=== PATIENT | male | born 1980 | race Two or more races ===

== ENCOUNTER 2021-03-20 18:03 | Emergency (ER) | payer OTHER, SELFPAY ==
--- NOTE | 2021-03-20 | ECG_ITS ---
Test Reason : CHESTPAIN Blood Pressure : / mmHG Vent. Rate : 086 BPM Atrial Rate : 086 BPM P-R Int : 160 ms QRS Dur : 092 ms QT Int : 342 ms P-R-T Axes : 065 008 021 degrees QTc Int : 409 ms Normal sinus rhythm Normal ECG When compared with ECG of 02-OCT-2019 06:37, No significant change was found Referred By: Myron Li Electronically Signed By:MARIA LUISA RAY
--- NOTE | ~2021-03-20 | XR_ITS ---
EXAMINATION: XR CHEST CLINICAL INFORMATION: Chest pain COMPARISON: None TECHNIQUE: Frontal view of the chest was obtained. FINDINGS: No significant abnormality is noted involving the heart, lungs, mediastinum, bony thorax or soft tissues. XR/XR chest 1V IMPRESSION: Unremarkable examination.
[2021-03-20 18:41] VITALS: BP 127/76; PULSE 87; RESP 18; TEMP 37; O2SAT 98; BMI 35.8
[2021-03-20 23:42] LABS: MANUAL DIFF FLAG NO
[2021-03-20 23:43] LABS: Basophils Absolute Auto 0.1 X10*3/uL (0.0-0.2); Basophils Percent Auto 0.6 % (0-2); Eosinophils Absolute Auto 0.2 X10*3/uL (0.0-0.4); Eosinophils Percent Auto 1.9 % (0-4); Hematocrit 44.8 % (42-52); Hemoglobin 15.1 g/dl (14.0-18.0); Imm Gran Abs Auto 0.02 X10*3/uL (0.00-0.03); Imm Gran Pct Auto 0.2 % (0.0-0.4); Lymphocytes Absolute Auto 1.6 X10*3/uL (1.2-4.9); Lymphocytes Percent Auto 17.6 % (20-40); Mean Corpuscular HGB Conc 33.7 g/dl (31.0-36.0); Mean Corpuscular Hemoglobin 29.3 pg (27.0-33.0); Mean Platelet Volume 12.4 fL (9.4-12.4); Monocytes Absolute Auto 0.4 X10*3/uL (0.1-1.2); Monocytes Percent Auto 4.1 % (2-11); Neutrophils Absolute Auto 6.7 X10*3/uL (2.0-8.3); Neutrophils Percent Auto 75.6 % (45-73); Platelet Count 163 X10*3/uL (160-400); Red Blood Count 5.15 X10*6/uL (4.60-5.80); Red Cell Distribution Width 12.6 % (11.0-16.0); White Blood Count 8.8 X10*3/uL (4.8-10.8)
--- NOTE | 2021-03-20 23:43 | ED_ITS ---
HPI - Chest Pain General Chief Complaint: Chest Pain Stated Complaint: CHEST PAIN Time Seen by Provider: 03/20/21 23:36 Source: patient Mode of arrival: ambulatory Limitations: no limitations History of Present Illness HPI narrative: Patient comes emergency room complaining of cough. Patient states when he coughs he gets chest pain, otherwise he does not have chest pain. Patient reports episodes of vomiting after coughing, also having loose stools. Patient denies fever chills. All of patient's symptoms started this morning. Patient states he is vaccinated for COVID-19 MD complaint: other (Cough) Related Data Previous Rx's Medication Instructions Recorded azithromycin 250 mg PO DAILY #6 tab 03/21/21 benzonatate [Tessalon Perles] 100 mg PO BID PRN #10 cap 03/21/21 Allergies Allergy/AdvReac Type Severity Reaction Status Date / Time No Known Allergies Allergy Verified 03/20/21 18:41 [No Known Allergies*] Review of Systems Review of Systems: Constitutional : No Weight loss, No Fever, No Chills, No Night Sweats, No Fatigue, No Malaise ENT/Mouth : No Hearing loss, No Ear Pain, No Nasal Congestion, No Sinus Pain, No Hoarseness, No sore throat, No Rhinorrhea, No Swallowing Difficulty Eyes: No Eye Pain, No Swelling, No Redness, No Foreign Body, No Discharge, No Vision Changes Cardiovascular : Complaining of Chest Pain with coughing, No SOB, No Dyspnea on Exertion, No Orthopnea, No Edema, No Palpitations Respiratory : Dry Cough, No Sputum with specks of blood, No Wheezing, No Smoke Exposure, No Dyspnea Gastrointestinal : No Nausea, No Vomiting, No Diarrhea, No Constipation, No abdominal Pain, No Hematochezia, No Melena Genitourinary : no irregular bleeding, No Dysuria, No Urinary Frequency, No Hematuria, No Urinary Incontinence, No Urgency, No Flank Pain, No Urinary Flow Changes, No Hesitancy Musculoskeletal : No joint pain, No Myalgias, No Joint Swelling Skin : No Skin Lesions, No rash Neuro : No Weakness, No Numbness, No Paresthesias, No Loss of Consciousness, No Dizziness, No Headache Psych : No Anxiety/Panic, No Depression, No SI/HI/AH/VH, No Social Issues, Heme/Lymph: No Bruising, No Bleeding,No Lymphadenopathy Endocrine : No Polyuria, No Polydipsia, No Temperature Intolerance [facility] Past Medical History Medical History Asthma Social History Social History Advance Directives: No Advance Directives Information Provided: No Physical Exam Vital Signs: Vital Signs: Last Vital Signs Temp 98.6 F 03/20/21 18:41 Pulse 87 03/20/21 18:41 Resp 18 03/20/21 18:41 BP 127/76 03/20/21 18:41 Pulse Ox 98 03/20/21 18:41 Body Mass Index 35.8 Appearance: Alert. Oriented X3. No acute distress. Eyes: Pupils equal, round and reactive to light. ENT: Pharynx normal. Neck: Normal inspection. Neck supple. No lymph nodes noted. No crepitus CVS: Normal heart rate and rhythm. Pulses normal. Normal S1 and S2 Respiratory: No respiratory distress. Breath sounds normal. No Wheezing. No rales , actively coughing, no hemoptysis Abdomen: Soft and nontender. No rigidity. No distention. good BS x4 Skin: Skin warm and dry. Normal skin color. Normal skin turgor. Extremities: No lower extremity edema. No lower extremity edema. No Lacerations. No Rash Neuro: Oriented X 3. No motor deficit. No sensory deficit. Moving all extermities. No slurred speech. Course Course Course Narrative: I discussed the labs and x-ray with the patient. Although there are no radiological findings, given the patient has cough and seen specks of blood, we will go ahead and treat for bronchitis. I discussed with the patient that it is possible that he may have bronchitis versus a 1 time episode of hemoptysis due to forceful coughing. In the emergency room, patient has not had any hemoptysis. MDM - Chest Pain Lab Data Result diagrams: 03/20/21 23:37 03/20/21 23:37 Labs: Lab Results 03/20/21 03/20/21 03/20/21 Range/Units 23:37 23:37 23:37 WBC 8.8 (4.8-10.8) X10*3/uL RBC 5.15 (4.60-5.80) X10*6/uL Hgb 15.1 (14.0-18.0) g/dl Hct 44.8 (42-52) % MCV 87.0 (80-98) fL MCH 29.3 (27.0-33.0) pg MCHC 33.7 (31.0-36.0) g/dl RDW 12.6 (11.0-16.0) % Plt Count 163 (160-400) X10*3/uL MPV 12.4 (9.4-12.4) fL Immature Gran % (Auto) 0.2 (0.0-0.4) % Neut % (Auto) 75.6 H (45-73) % Lymph % (Auto) 17.6 L (20-40) % Early % (Auto) 4.1 (2-11) % Eos % (Auto) 1.9 (0-4) % Baso % (Auto) 0.6 (0-2) % Lymph # (Auto) 1.6 (1.2-4.9) X10*3/uL Early # (Auto) 0.4 (0.1-1.2) X10*3/uL Eos # (Auto) 0.2 (0.0-0.4) X10*3/uL Baso # (Auto) 0.1 (0.0-0.2) X10*3/uL Abs Immat Gran (auto) 0.02 (0.00-0.03) X10*3/uL Absolute Neuts (auto) 6.7 (2.0-8.3) X10*3/uL Absolute Nucleated RBC 0.000 (0.0-0.012) X10*3/uL Nucleated RBC % (auto) 0.0 (0.0-0.2) /100WBC Sodium 139 (135-145) mmol/L Potassium 3.8 (3.3-5.1) mmol/L Chloride 105 (96-108) mmol/L Carbon Dioxide 27 (22-29) mmol/L Anion Gap 11 L (12-20) BUN 9 (9-16) mg/dL Creatinine 1.26 (0.5-1.4) mg/dL Estim Creat Clear Calc 95.2 Estimated GFR > 60 Random Glucose 203 H (60-115) mg/dL Calcium 9.0 (8.4-10.2) mg/dL Total Bilirubin 1.2 H (0.0-1.0) mg/dL Direct Bilirubin 0.4 (0.0-0.5) mg/dL AST 27 (5-37) U/L ALT 76 H (0-40) U/L Alkaline Phosphatase 128 H (39-117) U/L Troponin I High Sens < 3.5 (<3.5-35.0) ng/L Total Protein 6.4 L (6.5-8.0) g/dL Albumin 4.3 (3.5-5.0) g/dL Lipase 18 (8-78) U/L Coronavirus (PCR) (Negative) Influenza Type A (PCR) (Negative) Influenza Type B (PCR) (Negative) RSV RNA Qual (PCR) (Negative) 03/20/21 Range/Units 23:37 WBC (4.8-10.8) X10*3/uL RBC (4.60-5.80) X10*6/uL Hgb (14.0-18.0) g/dl Hct (42-52) % MCV (80-98) fL MCH (27.0-33.0) pg MCHC (31.0-36.0) g/dl RDW (11.0-16.0) % Plt Count (160-400) X10*3/uL MPV (9.4-12.4) fL Immature Gran % (Auto) (0.0-0.4) % Neut % (Auto) (45-73) % Lymph % (Auto) (20-40) % Early % (Auto) (2-11) % Eos % (Auto) (0-4) % Baso % (Auto) (0-2) % Lymph # (Auto) (1.2-4.9) X10*3/uL Early # (Auto) (0.1-1.2) X10*3/uL Eos # (Auto) (0.0-0.4) X10*3/uL Baso # (Auto) (0.0-0.2) X10*3/uL Abs Immat Gran (auto) (0.00-0.03) X10*3/uL Absolute Neuts (auto) (2.0-8.3) X10*3/uL Absolute Nucleated RBC (0.0-0.012) X10*3/uL Nucleated RBC % (auto) (0.0-0.2) /100WBC Sodium (135-145) mmol/L Potassium (3.3-5.1) mmol/L Chloride (96-108) mmol/L Carbon Dioxide (22-29) mmol/L Anion Gap (12-20) BUN (9-16) mg/dL Creatinine (0.5-1.4) mg/dL Estim Creat Clear Calc Estimated GFR Random Glucose (60-115) mg/dL Calcium (8.4-10.2) mg/dL Total Bilirubin (0.0-1.0) mg/dL Direct Bilirubin (0.0-0.5) mg/dL AST (5-37) U/L ALT (0-40) U/L Alkaline Phosphatase (39-117) U/L Troponin I High Sens (<3.5-35.0) ng/L Total Protein (6.5-8.0) g/dL Albumin (3.5-5.0) g/dL Lipase (8-78) U/L Coronavirus (PCR) NEGATIVE (Negative) Influenza Type A (PCR) NEGATIVE (Negative) Influenza Type B (PCR) NEGATIVE (Negative) RSV RNA Qual (PCR) NEGATIVE (Negative) Imaging Data Chest x-ray: Radiologist's impression: No significant abnormality is noted involving the heart, lungs, mediastinum, bony thorax or soft tissues. XR/XR chest 1V IMPRESSION: Unremarkable examination. Discharge Plan Discharge Clinical Impression: Bronchitis Patient Disposition: Home, Self-Care Instructions: Acute Bronchitis (ED) Additional Instructions: Please follow-up with your primary care physician tomorrow. If you have any worsening or new symptoms, please return to the emergency room or call 911 Prescriptions: New azithromycin 250 mg tablet 250 mg PO DAILY Qty: 6 RF: 0 benzonatate [Tessalon Perles] 100 mg capsule 100 mg PO BID PRN (Reason: cough) Qty: 10 RF: 0
[2021-03-21 00:14] LABS: Alanine Aminotransferase 76 U/L (0-40); Albumin Level 4.3 g/dL (3.5-5.0); Alkaline Phosphatase 128 U/L (39-117); Anion Gap 11 (12-20); Aspartate Amino Transferase 27 U/L (5-37); Bilirubin Direct 0.4 mg/dL (0.0-0.5); Bilirubin Total 1.2 mg/dL (0.0-1.0); Blood Urea Nitrogen 9 mg/dL (9-16); Carbon Dioxide 27 mmol/L (22-29); Chloride 105 mmol/L (96-108); Creatinine Clr Calc Pharmacy 95.2; Estimated Glomerular Filt Rate > 60; Glucose Random 203 mg/dL (60-115); Potassium 3.8 mmol/L (3.3-5.1); Sodium 139 mmol/L (135-145); Total Protein 6.4 g/dL (6.5-8.0)
[2021-03-21 00:16] LABS: Troponin-I High Sensitivity < 3.5 ng/L (<3.5-35.0)
[2021-03-21 00:43] LABS: Influenza A PCR NEGATIVE (Negative); Influenza B PCR NEGATIVE (Negative); Resp Syncy Virus RNA Qual PCR NEGATIVE (Negative); SARS COV2 PCR INHOUSE NEGATIVE (Negative)
[2021-03-21 01:02] LABS: Lipase 18 U/L (8-78)
[2021-03-21 02:17] VITALS: PULSE 83; RESP 16; O2SAT 96
[2021-03-21] MEDS: Benzonatate 100 MG CAPSULE PO (02:17)
== END 2021-03-21 02:38 | disposition home or self-care (01) ==
PROVIDERS: Emergency Medicine; Emergency Provider Emergency Medicine
DX: J40 Bronchitis, not specified as acute or chronic (principal); Z20.822 Contact with and (suspected) exposure to COVID-19
CPT/HCPCS: 0241U; 36415; 71045; 80048; 80076; 83690; 84484; 85025; 93005; 99283

== ENCOUNTER 2021-10-05 21:57 | Emergency (ER) | payer OTHER, SELFPAY ==
[2021-10-05 23:16] VITALS: BP 138/80; PULSE 87; RESP 18; O2SAT 96; BMI 37.9
[2021-10-05 23:28] LABS: COVID-19 Test Positive (Negative)
[2021-10-05 23:37] VITALS: TEMP 37; O2SAT 98; BMI 39.2
--- NOTE | 2021-10-06 00:23 | ED.URI ---
HPI - URI/Sore Throat General Chief Complaint: Upper Respiratory Symptoms Stated Complaint: COVID Symptoms Time Seen by Provider: 10/06/21 00:23 Source: patient Mode of arrival: ambulatory Limitations: no limitations History of Present Illness HPI Narrative: 41-year-old male presents with upper respiratory symptoms. Requesting COVID-19 testing. MD elicited complaint: cough and nasal congestion Onset (ago): day(s) Consistency: constant Severity: mild Description of mucous: clear Able to tolerate fluids by mouth: Yes Exacerbating factors: nothing Relieving factors: nothing Context: sick contacts Associated symptoms: nasal congestion and cough Treatments prior to arrival: none Related Data Previous Rx's Medication Instructions Recorded azithromycin 250 mg tablet 250 mg PO DAILY #6 tab 03/21/21 benzonatate 100 mg capsule 100 mg PO BID PRN #10 cap 03/21/21 (Jaziel Segal) lisinopril 10 mg tablet 10 mg PO DAILY 90 Days #90 tab 09/05/21 Allergies Allergy/AdvReac Type Severity Reaction Status Date / Time No Known Allergies Allergy Verified 03/20/21 18:41 [No Known Allergies*] Review of Systems Review of Systems: Constitutional: No Fever, No Chills ENT/Mouth: No sore throat, No Rhinorrhea Eyes: No Eye Pain, No Swelling, No Redness Cardiovascular: No Chest Pain, No SOB Respiratory: Positive Cough, No Sputum, positive nasal congestion Gastrointestinal: No Nausea, No Vomiting, No Diarrhea, No abdominal Pain Genitourinary: No Dysuria, No Hematuria Musculoskeletal: No joint pain, No Myalgias, No Joint Swelling Skin: No Skin Lesions, No rash Neuro: No Weakness, No Numbness, No Loss of Consciousness, No Dizziness, No Headache Psych: No Anxiety, No Depression, No SI/HI/AH/VH Heme/Lymph: No Bruising, No Bleeding,No Lymphadenopathy Endocrine: No Polyuria, No Polydipsia Yes all other systems are reviewed and are negative [facility] Past Medical History Attestation statement: The following information was validated with the patient. Source: old records reviewed Medical History Asthma Social History Social History Advance Directives: No Advance Directives Information Provided: Yes Physical Exam Vital Signs: Vital Signs: Last Vital Signs Temp 98.6 F 10/05/21 23:37 Pulse 87 10/05/21 23:16 Resp 18 10/05/21 23:16 BP 138/80 10/05/21 23:16 Pulse Ox 98 10/05/21 23:37 BMI result Body Mass Index 39.2 Appearance: Alert. Oriented X3. No acute distress. Eyes: Pupils equal, round and reactive to light. ENT: Pharynx normal. Neck: Normal inspection. Neck supple. CVS: Normal heart rate and rhythm. Pulses normal. Respiratory: No respiratory distress. Breath sounds normal. Abdomen: Soft and nontender. Skin: Skin warm and dry. Normal skin color. Normal skin turgor. Extremities: No lower extremity edema. Gait well-balanced well coordinated. Neuro: No motor deficit. No sensory deficit. Cranial nerves 2-12 intact. Course Course Course Narrative: 41-year-old male presents with upper respiratory symptoms consistent with COVID-19. Requesting COVID-19 testing. Even unlabored respirations, O2 sat 98% on room air. Afebrile. Appears nontoxic. Tested positive for COVID-19. Patient verbalized understanding of and agrees to plan of care discharge home. MDM - URI/Sore Throat MDM Narrative Medical decision making narrative: COVID-19 Differential Diagnosis Differential diagnosis: Likely upper respiratory infection, viral infection and influenza Medical Records Attestation: I reviewed the patient's medical records. Lab Data Attestation: I reviewed the patient's lab results. Labs: Lab Results 10/05/21 Range/Units 23:01 COVID-19 ([facility]) Positive A (Negative) COVID-19 Clin Com See Note Discharge Plan Discharge Clinical Impression: COVID-19 Patient Disposition: Home, Self-Care Instructions: COVID-19 (Coronavirus Disease 2019) (ED), Covid-19 Viral Syndrome and Novel Coronavirus (ED) Hey/Ath Additional Instructions: You tested positive for COVID-19. Maintain social isolation per State and Federal guidelines. Thank you for choosing this emergency department for evaluation. Please follow-up with primary care physician as needed. Return to the emergency department for any new, concerning, or worsening symptoms. Prescriptions: No Action lisinopril 10 mg tablet 10 mg PO DAILY 90 Days Qty: 90 RF: 0 azithromycin 250 mg tablet 250 mg PO DAILY Qty: 6 RF: 0 benzonatate [Tessalon Perles] 100 mg capsule 100 mg PO BID PRN (Reason: cough) Qty: 10 RF: 0
== END 2021-10-06 00:44 | disposition home or self-care (01) ==
PROVIDERS: Emergency Provider Internal Medicine; PCP Internal Medicine
DX: U07.1 COVID-19 (principal); J45.909 Unspecified asthma, uncomplicated
CPT/HCPCS: 36415; 87635; 99283

== ENCOUNTER 2021-11-03 21:57 | Emergency (ER) | payer OTHER, SELFPAY ==
--- NOTE | ~2021-11-03 | XR_ITS ---
EXAMINATION: XR CHEST CLINICAL INFORMATION: Cough. COMPARISON: Chest x-ray 03/20/2021 TECHNIQUE: Frontal view of the chest was obtained. 2207 hours FINDINGS: No significant abnormality is noted involving the heart, lungs, mediastinum, bony thorax or soft tissues. XR/XR chest 1V IMPRESSION: Unremarkable examination.
[2021-11-03 21:59] VITALS: BP 141/86; PULSE 113; RESP 20; TEMP 38.7; O2SAT 96; BMI 38.7
--- NOTE | 2021-11-03 22:05 | ED_ITS ---
HPI - URI/Sore Throat General Chief Complaint: Upper Respiratory Symptoms Stated Complaint: migraine, chest pain, coughing Time Seen by Provider: 11/03/21 21:58 Source: patient and old records reviewed Mode of arrival: ambulatory Limitations: no limitations History of Present Illness MD elicited complaint: fever, cough and other (headaches, body aches) Pertinent past history: asthma and other (COVID-19 10/05) Onset (ago): day(s) (started yesterday ) Consistency: constant Severity: moderate Description of mucous: clear Able to tolerate fluids by mouth: Yes Exacerbating factors: nothing Relieving factors: nothing Associated symptoms: fever, chills, myalgias, headache, rhinorrhea, cough and shortness of breath Treatments prior to arrival: none Related Data Previous Rx's Medication Instructions Recorded azithromycin 250 mg tablet 250 mg PO DAILY #6 tab 03/21/21 benzonatate 100 mg capsule 100 mg PO BID PRN #10 cap 03/21/21 (Tessalon Philipp) lisinopril 10 mg tablet 10 mg PO DAILY 90 Days #90 tab 09/05/21 albuterol sulfate 90 mcg/actuation 2 puff INHALATION QID PRN #8.5 g 11/03/21 aerosol inhaler (ProAir HFA) amoxicillin 875 mg-potassium 1 tab PO BID #14 tab 11/03/21 clavulanate 125 mg tablet (Augmentin) Allergies Allergy/AdvReac Type Severity Reaction Status Date / Time No Known Allergies Allergy Verified 11/03/21 22:02 [No Known Allergies*] Review of Systems Verdana 4l Review of Systems: Verdana 4d Verdana 4d Constitutional : positive Fever, positive Chills, positive fatigue, positive Malaise ENT/Mouth : no sore throat, positive runny nose Eyes: No Discharge Cardiovascular : No Chest Pain, No SOB Respiratory : pos Cough, No Sputum GastrointestinalGastrointestinal : No Nausea, No Vomiting, No Diarrhea Genitourinary : No Dysuria, No Urinary Frequency Musculoskeletal : positive Myalgia Skin : No rash, no lesions Neuro : pos Headache PMFSH Past Medical History Attestation statement: The following information was validated with the patient. 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 Oriented X3. No acute distress. Eyes: Pupils equal, round and reactive to light. ENT: Pharynx normal. Neck: Normal inspection. Neck supple. CVS: tachycardic heart rate and rhythm. Pulses normal. Respiratory: No respiratory distress. Breath sounds normal. Abdomen: Soft and nontender. Skin: Skin warm and dry. Normal skin color. Normal skin turgor. Extremities: No lower extremity edema. No calf ttp Neuro: Oriented X 3. No motor deficit. No sensory deficit. Course Course Course Narrative: no UTI symptoms, no IVDA, no abdominal pain, no sore throat, no neck pain, denies skin rashes at this time no source of infection - has cough/fevers will cover with augmentin and instruct to follow up. MDM - URI/Sore Throat MDM Narrative Medical decision making narrative: 41 yo male with hx of asthma, vaccinated x 1 remotely with Pfizer had COVID 19 on 10/05/21 notes yesterday started to feel unwell with body aches, cough, runny nose, headaches - he did not take motrin or tylenol. At this time will obtain PCR for flu/RSV, CXR for pneumonia. He denies symptoms. Has no meningeal signs. No abdominal pain or skin changes. Dispo per results and findings. Lab Data Labs: Lab Results 11/03/21 11/03/21 Range/Units 22:03 22:16 COVID-19 ([facility]) Cancelled COVID-19 Clin Com Cancelled Influenza Type A (PCR) NEGATIVE (Negative) Influenza Type B (PCR) NEGATIVE (Negative) RSV RNA Qual (PCR) NEGATIVE (Negative) SARS-CoV-2 RNA (RT-PCR) NEGATIVE (Negative) ECG Data Attestation: I personally reviewed and interpreted this ECG as follows: ECG interpretation date: 11/04/21 ECG interpretation time: 00:10 Interpretation: Rate: 91 Rhythm: NSR [place]: normal Normal P waves. Normal LONA. Normal QRS complex. ST T wave : normal no DALE qTC: normal prior studies: no acute ischemia The study has been interpreted contemporaneously by me. . Discharge Plan Discharge Clinical Impression: Bronchitis Fever Qualifiers: Fever type: unspecified Qualified Code(s): R50.9 - Fever, unspecified Patient Disposition: Home, Self-Care Instructions: Fever in Adults (ED), Acute Bronchitis (ED) Additional Instructions: return to ED for any worsening symptoms or concerns negative for flu, covid, rsv negative for CXR Prescriptions: New amoxicillin-pot clavulanate [Augmentin] 875-125 mg tablet 1 tab PO BID Qty: 14 0RF albuterol sulfate [ProAir HFA] 90 mcg/actuation HFA aerosol inhaler 2 puff inhalation QID PRN (Reason: shortness of breath or wheezing) Qty: 8.5 0RF No Action lisinopril 10 mg tablet 10 mg PO DAILY 90 Days Qty: 90 0RF azithromycin 250 mg tablet 250 mg PO DAILY Qty: 6 0RF benzonatate [Tessalon Perles] 100 mg capsule 100 mg PO BID PRN (Reason: cough) Qty: 10 0RF Stand Alone Forms: Work/School Release
[2021-11-03] MEDS: Acetaminophen 325 MG TABLET 650 MG PO (22:21)
[2021-11-03] MEDS: Ibuprofen 600 MG TABLET PO (22:21)
[2021-11-03] MEDS: Albuterol Sulfate 90 MCG 8 GM INHALER 2 PUFF INHALE (22:22)
[2021-11-03 23:01] VITALS: BP 135/76; PULSE 103; RESP 18; TEMP 38.3; O2SAT 95
[2021-11-03 23:06] LABS: Influenza A PCR NEGATIVE (Negative); Influenza B PCR NEGATIVE (Negative); Resp Syncy Virus RNA Qual PCR NEGATIVE (Negative); SARS COV2 PCR INHOUSE NEGATIVE (Negative)
--- NOTE | 2021-11-03 23:57 | ECG_ITS ---
Test Reason : COUGH Blood Pressure : / mmHG Vent. Rate : 091 BPM Atrial Rate : 091 BPM P-R Int : 166 ms QRS Dur : 096 ms QT Int : 346 ms P-R-T Axes : 063 016 028 degrees QTc Int : 425 ms Normal sinus rhythm Normal ECG When compared with ECG of 20-MAR-2021 18:29, No significant change was found Referred By: Brittaney Ness Electronically Signed By:JOSH URIOSTEGUI MD
[2021-11-04] MEDS: Amoxicillin/Potassium Clav 875 MG TABLET PO (00:07)
== END 2021-11-04 00:18 | disposition home or self-care (01) ==
PROVIDERS: Emergency Provider Emergency Medicine
DX: J40 Bronchitis, not specified as acute or chronic (principal); R50.9 Fever, unspecified; Z20.822 Contact with and (suspected) exposure to COVID-19; F17.200 Nicotine dependence, unspecified, uncomplicated
CPT/HCPCS: 0241U; 71045; 93005; 99284

== ENCOUNTER 2021-11-06 14:24 | Outpatient (REF) | payer OTHER, SELFPAY | END 2021-11-06 14:25 | disposition home or self-care (01) | LOC: HO.LNP 14:24 | PROVIDERS: Visit Provider Nurse Practitioner Family | DX: Z20.822 Contact with and (suspected) exposure to COVID-19 (principal); R05.9 Cough, unspecified | CPT/HCPCS: U0003; U0005 ==

== ENCOUNTER 2022-01-20 22:44 | Emergency (ER) | payer OTHER, SELFPAY ==
--- NOTE | ~2022-01-20 | CT_ITS ---
EXAMINATION: CT ABDOMEN AND PELVIS WITHOUT CONTRAST CLINICAL INFORMATION: Left flank pain COMPARISON: None TECHNIQUE: Multidetector volumetric imaging was performed from the superior aspect of the liver through the pubic symphysis. Sagittal and coronal reformatted images were obtained on the technologist's workstation. This CT examination was performed using dose optimization techniques as appropriate, variously including the following: *Automated exposure control *Adjustment of mA and/or kV according to patient size (this includes techniques or standardized protocols for targeted exams where dose is matched to indication/reason for exam; i.e. extremities or head) *Use of iterative reconstruction technique DLP: 862 mGy-cm FINDINGS: LUNG BASES: The visualized lung bases are unremarkable. LIVER, GALLBLADDER, AND BILIARY TREE: Liver normal in size, contour and morphology. There is diffuse hepatic steatosis with patchy focal sparing about the gallbladder fossa. No suspicious liver lesions. No intra or extrahepatic biliary dilatation. Gallbladder physiologically contracted. PANCREAS: Unremarkable. SPLEEN: Unremarkable. ADRENAL GLANDS: Unremarkable. KIDNEYS AND URETERS: The kidneys are normal in size, shape, and attenuation. There is a 2 mm nonobstructing calculus in the upper pole of the right kidney. No additional urinary calculi. No hydronephrosis or hydroureter. No perinephric abnormalities. BLADDER: Unremarkable. GASTROINTESTINAL TRACT: Scattered colonic diverticula. No evidence of diverticulitis. Normal appendix. ABDOMINAL WALL: Small fat-containing umbilical hernia. LYMPH NODES: Normal. VASCULAR: Aorta mildly atherosclerotic but normal caliber. PELVIC VISCERA: Unremarkable. OSSEOUS STRUCTURES: No acute or suspicious osseous abnormality. Bilateral L5 spondylolysis with grade 1 anterolisthesis of L5 over S1. CT/CT abdomen pelvis wo con IMPRESSION: * No acute findings within the abdomen or pelvis to explain the patient's symptomatology. * Nonobstructive 2 mm calculus, upper pole right kidney. * Hepatic steatosis. * Scattered colonic diverticula without evidence of diverticulitis.
[2022-01-20 23:03] VITALS: BP 136/80; PULSE 92; RESP 16; TEMP 36.8; O2SAT 97; BMI 36.6
--- NOTE | 2022-01-20 23:48 | ED_ITS ---
HPI - Back Pain/Injury General Chief Complaint: Back Pain/Injury Stated Complaint: sharp pains in back-kidney area Time Seen by Provider: 01/20/22 23:41 Source: patient Mode of arrival: ambulatory History of Present Illness HPI Narrative: 41-year-old male with history of asthma and high blood pressure presents with left-sided lower back pain without reported trauma the began while he was laying in bed and patient reports worsening of the pain while he was working and is exacerbated by bending forward. He denies any radiation of pain into either lower extremity, denies any numbness in the groin area and denies any associated fever, chills, nausea, vomiting, dysuria Related Data Previous Rx's Medication Instructions Recorded albuterol sulfate 90 mcg/actuation 2 puff INHALATION QID PRN #8.5 g 11/03/21 aerosol inhaler (ProAir HFA) amoxicillin 875 mg-potassium 1 tab PO BID #14 tab 11/03/21 clavulanate 125 mg tablet (Augmentin) lisinopril 10 mg tablet 10 mg PO DAILY 90 Days #90 tab 11/06/21 benzonatate 100 mg capsule 100 mg PO BID PRN #10 cap 11/07/21 ibuprofen 800 mg tablet 800 mg PO Q8H PRN #90 tab 11/07/21 cyclobenzaprine 5 mg tablet 5 mg PO BEDTIME PRN #4 tab 01/21/22 ketorolac 10 mg tablet 10 mg PO Q6H PRN 5 Days #20 tab 01/21/22 Allergies Allergy/AdvReac Type Severity Reaction Status Date / Time No Known Allergies Allergy Verified 01/20/22 23:06 [No Known Allergies*] Review of Systems Review of Systems: Pertinent positives and negatives as stated in HPI and 10 point review of systems is otherwise negative. [facility] Past Medical History Source: nursing notes reviewed Medical History Asthma COVID-19 Social History Social History Housing: Apartment Patient Tobacco Use Status: Former Tobacco user Years Smoked: quit 4 days ago e-Cigarette/Vaping Use: Never Used Second Hand Smoke Exposure: Yes Advance Directives: No service: No Current occupational status: employed Current occupation: [employer]. Current occupational exposures/hazards: No Physical Exam Vital Signs: Vital Signs: Last Vital Signs Temp 98.3 F 01/20/22 23:03 Pulse 92 01/20/22 23:03 Resp 16 01/20/22 23:03 BP 136/80 01/20/22 23:03 Pulse Ox 97 01/20/22 23:03 BMI result Body Mass Index 36.6 VITAL SIGNS: Reviewed. GENERAL: Well developed, well nourished, in no acute distress. HEAD: Normocephalic/atraumatic EYES: PERRLA, EOMI EARS: Ext canals without abnormality OROPHARYNX: no oral lesions noted, posterior pharynx clear LUNGS: Normal breath sounds. No adventitious sounds or accessory muscle use. SpO2<97> CARDIOVASCULAR: Regular rate and rhythm without noted murmurs ABDOMEN: Soft, non-tender, non-distended with bowel sounds. BACK: No CVA tenderness, but tenderness on palpation over the left lower paraspinal area without evidence of erythema or induration. NEUROLOGIC: Alert and oriented x 4. Strength and sensation to light touch were grossly intact x 4. Course Course Course Narrative: 41-year-old male with history and clinical presentation consistent with acute on chronic back pain and low clinical suspicion for UTI, pyelonephritis, renal colic or intra-abdominal pathology. Patient provided with combination analgesics to include lidocaine patch and will re-evaluate. Review of urinalysis is negative for evidence of infection or hematuria. On review of all investigations are no acute findings. Patient was discharged home in stable condition with improvement in his pain but informed that he would need to continue to take the medication. MDM - Back Pain/Injury Lab Data Labs: Lab Results 01/21/22 Range/Units 00:05 Urine Color YELLOW Urine Appearance CLOUDY Urine pH 8.5 H (5.0-8.0) Ur Specific [place] 1.010 (1.005-1.025) Urine Protein NEG (NEG-TRACE) MG/DL Urine Glucose (UA) NEG (NEG) MG/DL Urine Ketones NEG (NEG) MG/DL Urine Blood NEG (NEG) Urine Nitrite NEG (NEG) Ur Leukocyte Esterase NEG (NEG) Discharge Plan Discharge Clinical Impression: Back pain, Muscle spasm Patient Disposition: Home, Self-Care Instructions: Muscle Spasm (ED), Back Pain (ED) Additional Instructions: 1. Tylenol 1000 mg, orally, every 6 hours as needed for pain control. Do not exceed 4000 mg within 24 hours. 2. Lidocaine patch, apply to area of maximal tenderness as directed on the outside packaging. 3. You have 2 prescriptions please go to your pharmacy to pick them up. 4. Please follow-up with your primary care provider next 2-3 days for re- evaluation. Return to the ER for worsening symptoms. Prescriptions: New ketorolac 10 mg tablet 10 mg PO Q6H PRN (Reason: pain) 5 Days Qty: 20 0RF Rx Instructions: Patient received Toradol in the emergency room. Patient needs to stop all further NSAIDs such as ibuprofen, Motrin, Naprosyn, Aleve. cyclobenzaprine 5 mg tablet 5 mg PO BEDTIME PRN (Reason: muscle spasm) Qty: 4 0RF No Action benzonatate 100 mg capsule 100 mg PO BID PRN (Reason: cough) Qty: 10 0RF ibuprofen 800 mg tablet 800 mg PO Q8H PRN (Reason: pain) Qty: 90 2RF amoxicillin-pot clavulanate [Augmentin] 875-125 mg tablet 1 tab PO BID Qty: 14 0RF albuterol sulfate [ProAir HFA] 90 mcg/actuation HFA aerosol inhaler 2 puff inhalation QID PRN (Reason: shortness of breath or wheezing) Qty: 8.5 0RF lisinopril 10 mg tablet 10 mg PO DAILY 90 Days Qty: 90 0RF Referrals: [facility] [Primary Care Provider] - Stand Alone Forms: Work/School Release
[2022-01-20] MEDS: Acetaminophen 325 MG TABLET 975 MG PO (23:56)
[2022-01-20] MEDS: Ketorolac Tromethamine 15 MG/ML VIAL IM (23:56)
[2022-01-20] MEDS: Lidocaine 4 % Patch ADH..PATCH 1 PATCH TRANSDERMA (23:56)
--- NOTE | 2022-01-20 23:59 | PC.NURSE ---
Pt medicated per DEC. UA obtained and sent.
[2022-01-21 00:12] LABS: Appearance Urine CLOUDY; Color Urine YELLOW; Glucose Urine UA NEG (NEG); Leukocyte Esterase Urine NEG (NEG); Nitrite Urine NEG (NEG); PH 8.5 (5.0-8.0); Urine Blood NEG (NEG); Urine Ketones NEG (NEG); Urine Protein NEG (NEG-TRACE)
[2022-01-21 03:13] VITALS: BP 111/69; PULSE 74; RESP 18; TEMP 36.8; O2SAT 94
== END 2022-01-21 03:17 | disposition home or self-care (01) ==
PROVIDERS: Emergency Provider Student in an Organized Health Care Education/Training Program
DX: M54.50 Low back pain, unspecified (principal); M62.830 Muscle spasm of back; J45.909 Unspecified asthma, uncomplicated
CPT/HCPCS: 74176; 81003; 96372; 99284; J1885

== ENCOUNTER 2023-02-03 10:48 | Emergency (ER) | payer OTHER, SELFPAY ==
--- NOTE | ~2023-02-03 | XR_ITS ---
EXAMINATION: Right elbow and right shoulder. CLINICAL INDICATION: Pain after injury. COMPARISON: Right shoulder 07/19/2018 and 09/02/2018. TECHNIQUE: 3 views right elbow and 3 views right shoulder. FINDINGS: There is no visible acute fracture, dislocation subluxation. There is a small olecranon process enthesophyte. There are no loose bodies. No joint effusion. No bony abnormality. Right shoulder: There is small enthesophyte along the superior glenoid. The glenohumeral and AC joint space is maintained. No visible acute fracture, dislocation or subluxation seen. No soft tissue calcification or loose body seen. XR/XR elbow RT min 3V IMPRESSION: 1. Small olecranon process enthesophyte. No visible acute fracture or dislocation and right elbow. 2. Small enthesophyte along the superior glenoid. No visible acute fracture or dislocation seen in right shoulder.
--- NOTE | ~2023-02-03 | XR_ITS ---
EXAMINATION: Right elbow and right shoulder. CLINICAL INDICATION: Pain after injury. COMPARISON: Right shoulder 07/19/2018 and 09/02/2018. TECHNIQUE: 3 views right elbow and 3 views right shoulder. FINDINGS: There is no visible acute fracture, dislocation subluxation. There is a small olecranon process enthesophyte. There are no loose bodies. No joint effusion. No bony abnormality. Right shoulder: There is small enthesophyte along the superior glenoid. The glenohumeral and AC joint space is maintained. No visible acute fracture, dislocation or subluxation seen. No soft tissue calcification or loose body seen. XR/XR shoulder RT min 2V IMPRESSION: 1. Small olecranon process enthesophyte. No visible acute fracture or dislocation and right elbow. 2. Small enthesophyte along the superior glenoid. No visible acute fracture or dislocation seen in right shoulder.
[2023-02-03 11:09] VITALS: BP 132/83; PULSE 86; RESP 19; TEMP 36.6; O2SAT 98; BMI 36.9
--- NOTE | 2023-02-03 11:09 | ED_ITS ---
HPI - Extremity Injury (Upper) General Chief Complaint: Extremity Injury, Upper <DOMINGO Hylton Last Filed: 02/03/23 11:11> Stated Complaint: R arm pain rad to neck <DOMINGO Hylton Last Filed: 02/03/23 11:11> Time Seen by Provider: 02/03/23 12:40 <DOMINGO Hylton - Last Filed: 02/03/23 11:11> Source: patient <DOMINGO Longoria Last Filed: 02/03/23 13:48> Mode of arrival: ambulatory <DOMINGO Longoria Last Filed: 02/03/23 13:48> Limitations: no limitations <DOMINGO Longoria Last Filed: 02/03/23 13:48> History of Present Illness HPI narrative: Patient is a 42 year old assigned male at with a history of a right labrum tear presenting to the emergency department today with right shoulder pain. Patient states that years ago he had a right labrum tear that was repaired by Dr. Ling. Patient states that the other day something fell and caused him to fall, with his right arm moving in an awkward direction and now he has right shoulder pain. Patient denies hitting his head with the incident. Patient denies any loss of consciousness from the incident. Patient denies any dizziness, lightheadedness, abdominal pain, nausea, vomiting, fever, chills, blurry vision, double vision, loss of vision, chest pain, difficulty breathing, shortness of breath, back pain, night sweats, pain with urination, increased urinary frequency, increased urinary urgency, blood in his urine or stool, syncope or a near syncopal episode, bowel incontinence, bladder incontinence, bowel retention, bladder retention, or any other complaints at this time. <DOMINGO oLngoria Last Filed: 02/03/23 13:48> MD complaint: injury to: right and shoulder <DOMINGO Longoria Last Filed: 02/03/23 13:48> Onset (ago): day(s) <DOMINGO Longoria Last Filed: 02/03/23 13:48> Severity scale (1-10): 3 <DOMINGO Longoria Last Filed: 02/03/23 13:48> Related Data Home Medications: Previous Rx's Medication Instructions Recorded albuterol sulfate 90 mcg/actuation 2 puff inhalation QID PRN 11/03/21 aerosol inhaler (ProAir HFA) shortness of breath or wheezing #8.5 grams amoxicillin 875 mg-potassium 1 tab PO BID #14 tabs 11/03/21 clavulanate 125 mg tablet (Augmentin) lisinopril 10 mg tablet 10 mg PO DAILY 90 days #90 tabs 11/06/21 benzonatate 100 mg capsule 100 mg PO BID PRN cough #10 caps 11/07/21 ibuprofen 800 mg tablet 800 mg PO Q8H PRN pain #90 tabs 11/07/21 cyclobenzaprine 5 mg tablet 5 mg PO BEDTIME PRN muscle spasm 01/21/22 #4 tabs ketorolac 10 mg tablet 10 mg PO Q6H PRN pain 5 days #20 01/21/22 tabs cyclobenzaprine 5 mg tablet 5 mg PO TID PRN muscle spasm 7 02/03/23 days #21 tabs prednisone 20 mg tablet 20 mg PO DAILY 7 days #7 tabs 02/03/23 <DOMINGO Hylton Last Filed: 02/03/23 11:11> Allergies/Adverse Reactions: Allergies Allergy/AdvReac Type Severity Reaction Status Date / Time No Known Allergies Allergy Verified 02/03/23 11:09 [No Known Allergies*] <DOMINGO Hylton Last Filed: 02/03/23 11:11> Review of Systems Constitutional: Constitutional: Reports no additional constitutional comp laints, Denies chills, Denies fever(s) and Denies night sweats <DOMINGO Longoria Last Filed: 02/03/23 13:48> Eyes: Eyes: Reports no additional eye complaints, Denies blurry vision, Denies change in vision, Denies diplopia, Denies eye discharge, Denies loss of vision and Denies eye pain <DOMINGO Longoria Last Filed: 02/03/23 13:48> ENT: Denies dizziness <DOMINGO Longoria Last Filed: 02/03/23 13:48> Cardiovascular: Cardiovascular: Reports no additional cardiovascular complaints, Denies chest pain, Denies lightheadedness, Denies Loss of Consciousness and Denies dyspnea <DOMINGO Longoria Last Filed: 02/03/23 13:48> Respiratory: Respiratory: Reports no additional respiratory complaints and Denies dyspnea <DOMINGO Longoria Last Filed: 02/03/23 13:48> Gastrointestinal: Gastrointestinal: Reports no additional gastrointestinal complaints, Denies abdominal pain, Denies melena, Denies hematochezia, Denies change in bowel habits and Denies change in stool character <DOMINGO Longoria Last Filed: 02/03/23 13:48> Genitourinary: Genitourinary: Reports no additional male genitourinary complaints, Denies hematuria, Denies oliguria, Denies difficulty urinating, Denies dysuria, Denies urinary frequency, Denies urinary hesitancy, Denies urinary incontinence and Denies urinary urgency <DOMINGO Longoria Last Filed: 02/03/23 13:48> Musculoskeletal: Musculoskeletal: Reports no additional musculoskeletal complaints, Denies numbness and Denies tingling <DOMINGO Longoria Last Filed: 02/03/23 13:48> Comments: right shoulder pain <DOMINGO Longoria Last Filed: 02/03/23 13:48> Neurologic: Denies dizziness, Denies loss of vision, Denies numbness and Denies tingling <DOMINGO Longoria Last Filed: 02/03/23 13:48> Psychiatric: Psychiatric: Reports no additional psychiatric complaints <DOMINGO Longoria Last Filed: 02/03/23 13:48> Endocrine: Endocrine: Reports no additional endocrine complaints <DOMINGO Longoria Last Filed: 02/03/23 13:48> Hematologic/Lymphatic: Hematologic/Lymphatic: Reports no additional arnaud tologic/lymphatic complaints <DOMINGO Longoria Last Filed: 02/03/23 13:48> Allergic/Immunologic: Allergic/Immunologic: Reports no additional allergic/immunologic complaints <DOMINGO Longoria Last Filed: 02/03/23 13:48> PMFSH Past Medical History Attestation statement: The following information was validated with the patient. <DOMINGO Longoria Last Filed: 02/03/23 13:48> Source: old records reviewed and nursing notes reviewed <DOMINGO Longoria Filed: 02/03/23 13:48> Medical History: Medical History Asthma COVID-19 <DOMINGO Hylton - Last Filed: 02/03/23 11:11> Social History Social History: Social History Housing: Apartment Patient Tobacco Use Status: Former Tobacco user Years Smoked: quit 4 days ago e-Cigarette/Vaping Use: Never Used Second Hand Smoke Exposure: Yes service: No Current occupational status: employed Current occupation: [employer]. Current occupational exposures/hazards: No <DOMINGO Hylton - Last Filed: 02/03/23 11:11> Physical Exam Vital Signs: Vital Signs: Last Vital Signs Temp 98 F 02/03/23 11:09 Pulse 86 02/03/23 11:09 Resp 19 02/03/23 11:09 BP 132/83 02/03/23 11:09 Pulse Ox 98 02/03/23 11:09 O2 Del Method Room Air 02/03/23 11:09 BMI result Body Mass Index 36.9 <DOMINGO Hylton - Last Filed: 02/03/23 11:11> Vital Signs: Last Vital Signs Temp 98 F 02/03/23 11:09 Pulse 86 02/03/23 11:09 Resp 19 02/03/23 11:09 BP 132/83 02/03/23 11:09 Pulse Ox 98 02/03/23 11:09 O2 Del Method Room Air 02/03/23 11:09 BMI result Body Mass Index 36.9 <DOMINGO Longoria - Last Filed: 02/03/23 13:48> Const: General: cooperative, no acute distress, alert and awake <DOMINGO Longoria - Last Filed: 02/03/23 13:48> Nutritional Appearance: well nourished <DOMINGO Longoria - Last Filed: 02/03/23 13:48> Orientation/consciousness: patient oriented x3 <DOMINGO Longoria - Last Filed: 02/03/23 13:48> Limitations: no limitations <DOMINGO Longoria - Last Filed: 02/03/23 13:48> HEENT: Head: Yes normal to inspection and Yes atraumatic <Isa Mayesmatilde PA - Last Filed: 02/03/23 13:48> Ears: hearing grossly normal bilaterally and external ears normal <Isa Telles PA - Last Filed: 02/03/23 13:48> General nose exam: Normal external nose present, no nasal discharge noted and no epistaxis <Isa Mayesmatilde PA - Last Filed: 02/03/23 13:48> Face and sinus: Yes normal facial exam, No abrasion and No laceration <Isa Telles PA - Last Filed: 02/03/23 13:48> Mouth: Normal oral and palatal mucosa present, no drooling and no muffled voice <Isa Mayesmatilde PA - Last Filed: 02/03/23 13:48> Eyes: General: appearance normal, both eyes and all related structures <Isa Mayesmatilde NE - Last Filed: 02/03/23 13:48> Periorbital: periorbital findings normal <Isa Mayesmatilde NE - Last Filed: 02/03/23 13:48> Eyelids: Yes eyelids normal <Isa Telles PA - Last Filed: 02/03/23 13:48> Conjunctivae: conjunctivae normal <Isa Mayesmatilde PA - Last Filed: 02/03/23 13:48> Pupils: Equal, round and reactive pupils present <Isa Mayesmatilde PA - Last Filed: 02/03/23 13:48> EOM: EOMs intact bilaterally <Isa Mayesmatilde NE - Last Filed: 02/03/23 13:48> Neck: Neck: Yes normal visual inspection, Yes full ROM and Yes no lymphadenopathy <Isa Mayesmatilde PA - Last Filed: 02/03/23 13:48> Chest: Chest palpation & inspection: normal inspection of the chest <Isa Telles PA - Last Filed: 02/03/23 13:48> Resp: Effort & Inspection: normal respiratory effort and able to speak in complete sentences <Isa Telles PA - Last Filed: 02/03/23 13:48> GI: Inspection: Yes normal to inspection <Isa Telles PA - Last Filed: 02/03/23 13:48> Neuro: General: patient oriented x3 and moves all extremities <Isa TellesDOMINGO - Last Filed: 02/03/23 13:48> Cranial nerves: Yes Equal, round and reactive pupils present <Isa TellesDOMINGO - Last Filed: 02/03/23 13:48> Cognition (Neuro): normal cognition <Isa TellesDOMINGO - Last Filed: 02/03/23 13:48> Motor exam (neuro): 5/5 motor strength present throughout <Isa TellesDOMINGO - Last Filed: 02/03/23 13:48> Sensory Exam: Normal double simultaneous stimulation for sensation <Isa TellesDOMINGO - Last Filed: 02/03/23 13:48> Coordination: [id number] test normal <Isa TellesDOMINGO - Last Filed: 02/03/23 13:48> Extrem: Other: minimal ROM of of the right shoulder secondary to pain <Isa TellesDOMINGO - Last Filed: 02/03/23 13:48> General: Yes normal to inspection and Yes capillary refill normal <Isa TellesDOMINGO - Last Filed: 02/03/23 13:48> Psych: Appearance: grossly normal <Isa TellesDOMINGO - Last Filed: 02/03/23 13:48> Mental Status: mental status grossly normal <Isa TellesDOMINGO - Last Filed: 02/03/23 13:48> Affect: normal affect <Isa TellesDOMINGO - Last Filed: 02/03/23 13:48> Attitude: cooperative <Isa MayesDOMINGO clayton - Last Filed: 02/03/23 13:48> Thought process: Normal thought process present <Isa MayesDOMINGO clayton - Last Filed: 02/03/23 13:48> Thought content: Normal thought content present <Isa MayesDOMINGO clayton - Last Filed: 02/03/23 13:48> Insight: Good insight present (Psych) <Isaarnel MayesDOMINGO clayton - Last Filed: 02/03/23 13:48> Course Course Course Narrative: RME - 42 yo male with history of right shoulder labrum tear s/p surgery by Dr. Ling in the past who presents to the ER for RUE pain for the last 2 weeks after an injury. He reports pain in the shoulder and neck with supination of the right hand and forearm. Pain is 8-9/10, feels similar to his labral tear. Plan: x-rays and full exam in [facility] [place]. f/u orthopedics <DOMINGO Hylton - Last Filed: 02/03/23 11:11> Medical Decision Making Medical Decision Making MDM Narrative: Patient is a 42 year old assigned male at with a history of a previous right labrum tear presenting to the emergency department today with right shoulder pain. Patient's physical exam showed decreased ROM secondary to pain of the right shoulder but was otherwise unremarkable. Patient's right shoulder and elbow x-rays showed no acute process. I explained my physical exam findings as well as all test results to the patient. I answered all questions asked by the patient. I stressed the importance of the patient taking his medication as prescribed. I stressed the importance of the patient following up with his primary care provider and an orthopedic provider. I stressed the importance of the patient returning to the emergency department immediately if his symptoms were to worsen or if he were to develop any dizziness, shortness of breath, difficulty breathing, chest pain, blurry vision, loss of vision, nausea, vomiting, abdominal pain, fever, chills, back pain, or any other complaints. Patient verbalized agreement and understanding with this treatment plan and discharge. <DOMINGO Longoria Last Filed: 02/03/23 13:48> Differential Diagnosis Differential Diagnoses: The differential diagnosis associated with the presentation includes <DOMINGO Longoria Last Filed: 02/03/23 13:48> right shoulder pain, right shoulder strain <DOMINGO Longoria Last Filed: 02/03/23 13:48> Independent Interpretation I performed an independent interpretation of an: Plain X-Ray <DOMINGO Longoria Last Filed: 02/03/23 13:48> Interpretation: My interpretation is in agreement with the radiologist's impression of these imaging studies. --------- EXAMINATION: Right elbow and right shoulder. CLINICAL INDICATION: Pain after injury. COMPARISON: Right shoulder 07/19/2018 and 09/02/2018. TECHNIQUE: 3 views right elbow and 3 views right shoulder. FINDINGS: There is no visible acute fracture, dislocation subluxation. There is a small olecranon process enthesophyte. There are no loose bodies. No joint effusion. No bony abnormality. Right shoulder: There is small enthesophyte along the superior glenoid. The glenohumeral and AC joint space is maintained. No visible acute fracture, dislocation or subluxation seen. No soft tissue calcification or loose body seen. XR/XR shoulder RT min 2V IMPRESSION: 1.? Small olecranon process enthesophyte. No visible acute fracture or dislocation and right elbow. 2.? Small enthesophyte along the superior glenoid. No visible acute fracture or dislocation seen in right shoulder. Dictated By: Joaquín Mckeon MD Signed By: Electronically signed by Joaquín Mckeon MD 02/03/23 1200 <DOMINGO Longoria - Last Filed: 02/03/23 13:48> Discharge Plan Discharge Clinical Impression: Acute shoulder pain <DOMINGO Hylton - Last Filed: 02/03/23 11:11> Patient Disposition: Home, Self-Care <DOMINGO Hylton Last Filed: 02/03/23 11:11> Instructions: Shoulder Pain (ED) <DOMINGO Hylton Last Filed: 02/03/23 11:11> Additional Instructions: Follow up with your primary care provider and an orthopedic provider. Return to the emergency department immediately if your symptoms worsen or if you develop any dizziness, shortness of breath, difficulty breathing, chest pain, blurry vision, loss of vision, nausea, vomiting, abdominal pain, fever, chills, back pain, or any other complaints. <DOMINGO Hylton Last Filed: 02/03/23 11:11> Prescriptions: New cyclobenzaprine 5 mg tablet 5 mg PO TID PRN (Reason: muscle spasm) 7 Days Qty: 21 0RF prednisone 20 mg tablet 20 mg PO DAILY 7 Days Qty: 7 0RF No Action benzonatate 100 mg capsule 100 mg PO BID PRN (Reason: cough) Qty: 10 0RF ibuprofen 800 mg tablet 800 mg PO Q8H PRN (Reason: pain) Qty: 90 2RF amoxicillin-pot clavulanate [Augmentin] 875-125 mg tablet 1 tab PO BID Qty: 14 0RF albuterol sulfate [ProAir HFA] 90 mcg/actuation HFA aerosol inhaler 2 puff inhalation QID PRN (Reason: shortness of breath or wheezing) Qty: 8.5 0RF ketorolac 10 mg tablet 10 mg PO Q6H PRN (Reason: pain) 5 Days Qty: 20 0RF Rx Instructions: Patient received Toradol in the emergency room. Patient needs to stop all further NSAIDs such as ibuprofen, Motrin, Naprosyn, Aleve. cyclobenzaprine 5 mg tablet 5 mg PO BEDTIME PRN (Reason: muscle spasm) Qty: 4 0RF lisinopril 10 mg tablet 10 mg PO DAILY 90 Days Qty: 90 0RF <DOMINGO Hylton - Last Filed: 02/03/23 11:11> Referrals: [facility] [place] [facility] [place] Group] (Call to establish and follow up with a primary care provider. If you already have a primary care provider, please follow up with them.) [facility] [place] [facility] [place] [Provider Group] (Call to establish and follow up with a primary care provider. If you already have a primary care provider, please follow up with them.) [facility] [place] [facility] [Provider Group] (Call to establish and follow up with a primary care provider. If you already have a primary care provider, please follow up with them.) [facility] [Provider Group] (Call to establish and follow up with an orthopedic provider.) <DOMINGO Hylton - Last Filed: 02/03/23 11:11> Stand Alone Forms: Work/School Release <DOMINGO Hylton - Last Filed: 02/03/23 11:11> Interventions: ED Discharge Assessment Last Done: 02/03/23 13:13 <DOMINGO Hylton - Last Filed: 02/03/23 11:11> Discharge Date/Time: 02/03/23 13:14 <DOMINGO Hylton - Last Filed: 02/03/23 11:11> Print Language: Upper Sorbian <DOMINGO Hylton - Last Filed: 02/03/23 11:11>
== END 2023-02-03 13:14 | disposition home or self-care (01) ==
PROVIDERS: Emergency Provider Emergency Medicine
DX: M25.511 Pain in right shoulder (principal); M25.521 Pain in right elbow; Z87.891 Personal history of nicotine dependence; Z79.899 Other long term (current) drug therapy
CPT/HCPCS: 73030; 73080; 99282; 99283

== ENCOUNTER 2023-02-12 13:14 | Outpatient (REF) | payer OTHER, SELFPAY ==
--- NOTE | ~2023-02-12 | XR_ITS ---
EXAMINATION: XR ELBOW, RIGHT CLINICAL INFORMATION: Pain. COMPARISON: Radiographs dated 02/03/2023. TECHNIQUE: AP, lateral, and oblique views of the right elbow. FINDINGS: The bones and soft tissues are unremarkable. A tiny enthesophyte is redemonstrated arising from the olecranon process at the triceps tendon insertion site. No fracture or joint effusion. Alignment is anatomic. Joint spaces are maintained. XR/XR elbow RT min 3V IMPRESSION: Unremarkable right elbow.
== END 2023-02-12 13:15 | disposition home or self-care (01) ==
LOC: HO.HOSX 13:14
PROVIDERS: Visit Provider Physician Assistant
DX: M25.521 Pain in right elbow (principal); M75.81 Other shoulder lesions, right shoulder; S16.1XXA Strain of muscle, fascia and tendon at neck level, initial encounter
CPT/HCPCS: 73080; 99202

== ENCOUNTER 2025-02-02 20:16 | Emergency (ER) | payer OTHER, SELFPAY ==
--- NOTE | ~2025-02-02 | CT_ITS ---
CLINICAL HISTORY: trauma CT left shoulder without intravenous contrast Comparison: CR - XR SHOULDER LT MIN 2V - 02/02/25 20:52 EDT Findings: Mild subchondral cystic changes of the glenoid fossa. Mild acromioclavicular osteoarthritis. No acute fracture or dislocation. Soft tissues are within normal limits. Visualized lungs are clear. Impression: No acute findings. This document has been electronically signed by: Prasad Landa MD on 02/03/2025 00:54:04
--- NOTE | ~2025-02-02 | XR_ITS ---
CLINICAL HISTORY: L shoulder pain s p lifting a box, limited rom 3 view left shoulder Comparison: None Findings: No acute fracture or malalignment. Mild AC joint hypertrophy. Glenohumeral joint space loss with marginal osteophytosis. Subacromial space is maintained. Partially visualized left lung is clear. IMPRESSION: 1. Degenerative changes. No acute fracture or malalignment. This document has been electronically signed by: Anna Marie Saxena MD on 02/02/2025 21:17:49
[2025-02-02 20:18] VITALS: BP 152/96; PULSE 97; RESP 17; TEMP 37.1; O2SAT 98; BMI 32.6
--- NOTE | 2025-02-02 20:20 | ED_ITS ---
HPI - General Adult General Chief complaint: Extremity Injury, Upper Stated complaint: left shoulder pain Time Seen by Provider: 02/02/25 22:28 Source: patient Limitations: no limitations History of Present Illness ED Provider: Lashawn Yanez PA-C HPI narrative: 44-year-old male with a history of tendinitis of right rotator cuff, presents with acute onset left shoulder pain which began after he attempted to lift a heavy box at work. Pain over left anterior shoulder with radiation to left lateral neck. Patient has a unable to lift his arm above his head. Denies swelling. Denies paresthesia. Related Data Previous Rx's ?Medication ?Instructions ?Recorded albuterol sulfate 90 mcg/actuation 2 puff inhalation QID PRN 11/03/21 aerosol inhaler (ProAir HFA) shortness of breath or wheezing #8.5 grams amoxicillin 875 mg-potassium 1 tab PO BID #14 tabs 11/03/21 clavulanate 125 mg tablet (Augmentin) lisinopril 10 mg tablet 10 mg PO DAILY 90 days #90 tabs 11/06/21 benzonatate 100 mg capsule 100 mg PO BID PRN cough #10 caps 11/07/21 ibuprofen 800 mg tablet 800 mg PO Q8H PRN pain #90 tabs 11/07/21 cyclobenzaprine 5 mg tablet 5 mg PO BEDTIME PRN muscle spasm 01/21/22 #4 tabs ketorolac 10 mg tablet 10 mg PO Q6H PRN pain 5 days #20 01/21/22 tabs cyclobenzaprine 5 mg tablet 5 mg PO TID PRN muscle spasm 7 02/03/23 days #21 tabs prednisone 20 mg tablet 20 mg PO DAILY 7 days #7 tabs 02/03/23 ketorolac 10 mg tablet 10 mg PO Q6H PRN pain #20 tabs 02/03/25 methocarbamol 750 mg tablet 1,500 mg (2 x 750 mg) PO Q8H PRN 02/03/25 pain, moderate #20 tabs Allergies Allergy/AdvReac Type Severity Reaction Status Date / Time No Known Allergies Allergy Verified 02/02/25 20:20 [No Known Allergies*] Review of Systems Review of Systems: Yes all other systems are reviewed and are negative Constitutional: Constitutional: Denies fatigue and Denies fever(s) Musculoskeletal: Musculoskeletal: Reports arthralgias and Denies joint swelling Endocrine: Endocrine: Denies fatigue [facility] Past Medical History Attestation statement: The following information was validated with the patient. Medical History (Updated 02/03/25 @ 00:02 by DOMINGO Dwyer) Cervical strain COVID-19 Asthma Social History Social History Housing: Apartment Patient Tobacco Use Status: Former Tobacco user Years Smoked: quit 4 days ago e-Cigarette/Vaping Use: Never Used Second Hand Smoke Exposure: Yes Advance Directives: No Advance Directives Information Provided: Yes Do you have a plan to hurt others: No Plan service: No Current occupational status: employed Current occupation: [employer]. Current occupational exposures/hazards: No Physical Exam ED Vital Signs: Vital Signs - 24 hr 02/02/25 20:18 02/02/25 22:44 Temperature 98.7 F 98.3 F Pulse Rate 97 89 Respiratory Rate 17 18 Blood Pressure 152/96 H 153/90 H Pulse Oximetry 98 98 Oxygen Delivery Method Room Air Room Air BMI result Body Mass Index 32.6 Const Other: Alert Orientation/consciousness: patient oriented x3 Resp Effort & Inspection: normal respiratory effort Cardio Other: Normal peripheral perfusion Skin Other: Warm dry no rash Neuro General: patient oriented x3, gait normal, no focal motor deficits and CN's II- XI intact bilaterally Extrem Other: Patient able to flex and extend from the left elbow, he can raise the arm parallel with the shoulder but can not lifted above the head Psych Other: Cooperative Course Course Course Narrative: This is a Rapid Medical Examination (RME) performed by Karo Lemon PA-C in triage. Full HPI, ROS, assessment and treatment plan per primary provider in the Main ED. 02/02/252019 DOMINGO Goncalves Hx: 44 yo male here for eval of acute onset left shoulder pain which began after he attempted to lift a heavy box at work. reports limited ROM to left shoulder d/t pain. no blunt injury/trauma. PE/vitals: well appearing, limited ROM to L shoulder on extension. Plan: xrs Reevaluation(s) Reevaluation #1: Patient unable to stay for results of the CT scan, he has a patient portal, he also has an orthopedist to follow up with, Medications Administered Discontinued Medications Generic Name Dose Route Start Last Admin Trade Name Conor PRN Reason Stop Dose Admin Ketorolac Tromethamine 15 mg 02/02/25 23:08 02/02/25 23:25 Ketorolac Tromethamine 15 Mg/Ml Vial IM 02/02/25 23:09 15 mg ONCE ONE Administration Methocarbamol 1,500 mg 02/02/25 23:08 02/02/25 23:25 Methocarbamol 750 Mg Tablet PO 02/02/25 23:09 1,500 mg ONCE ONE Administration Medical Decision Making Medical Decision Making MDM Narrative: 44-year-old male with a history of tendinitis of right rotator cuff, presents with acute onset left shoulder pain which began after he attempted to lift a heavy box at work. Pain over left anterior shoulder with radiation to left lateral neck. Patient has a unable to lift his arm above his head. Denies swelling. Denies paresthesia. No chronic issues History: Per patient I have considered the following differential diagnoses: Fracture, dislocation, sprain, tendinitis, rotator cuff injury, labrum tear , frozen shoulder Plan: X-ray ordered from triage, no fracture or dislocation he has significant degenerative changes, we will obtain a CT scan given lack of range of motion. Given acute onset likely not tendonitis, there was no sequence of repetitive activity that gradually occurred. he will likely require an MRI of the shoulder. Could be rotator cuff, could be labrum etc.. He has an orthopedic surgeon who he follows. We will treat with a muscle relaxant and an anti- inflammatory. I have independently reviewed the following tests: X-ray left shoulder,Findings: No acute fracture or malalignment. Mild AC joint hypertrophy. Glenohumeral joint space loss with marginal osteophytosis. Subacromial space is maintained. Partially visualized left lung is clear. IMPRESSION: 1. Degenerative changes. No acute fracture or malalignment. CT left shoulder: Discharge Plan Discharge Clinical Impression: Left shoulder strain Patient Disposition: Home, Self-Care Instructions: Muscle Strain (ED) Additional Instructions: The x-ray of the left shoulder revealed that you have significant degenerative changes. You have a CT of the shoulder pending, you are unable to stay for results. You can view on your patient portal. You need to follow up with your orthopedist, you may require an MRI as an outpatient. Use the ketorolac as directed, this is the anti-inflammatory take it with food. Use the methocarbamol as needed for further pain, this is a muscle relaxant. This medication will cause drowsiness do not drive or operate machinery while taking the medication. Call to make an appointment. Prescriptions: New ketorolac 10 mg tablet 10 mg PO Q6H PRN (Reason: pain) Qty: 20 0RF Rx Instructions: maximum total duration of 5 days from all oral, intranasal, or parenteral formulations. The patient received an intramuscular dose of Toradol here in the emergency room. methocarbamol 750 mg tablet 1,500 mg PO Q8H PRN (Reason: pain, moderate) Qty: 20 0RF No Action benzonatate 100 mg capsule 100 mg PO BID PRN (Reason: cough) Qty: 10 0RF ibuprofen 800 mg tablet 800 mg PO Q8H PRN (Reason: pain) Qty: 90 2RF amoxicillin-pot clavulanate [Augmentin] 875-125 mg tablet 1 tab PO BID Qty: 14 0RF albuterol sulfate [ProAir HFA] 90 mcg/actuation HFA aerosol inhaler 2 puff inhalation QID PRN (Reason: shortness of breath or wheezing) Qty: 8.5 0RF ketorolac 10 mg tablet 10 mg PO Q6H PRN (Reason: pain) 5 Days Qty: 20 0RF Rx Instructions: Patient received Toradol in the emergency room. Patient needs to stop all further NSAIDs such as ibuprofen, Motrin, Naprosyn, Aleve. cyclobenzaprine 5 mg tablet 5 mg PO BEDTIME PRN (Reason: muscle spasm) Qty: 4 0RF cyclobenzaprine 5 mg tablet 5 mg PO TID PRN (Reason: muscle spasm) 7 Days Qty: 21 0RF prednisone 20 mg tablet 20 mg PO DAILY 7 Days Qty: 7 0RF lisinopril 10 mg tablet 10 mg PO DAILY 90 Days Qty: 90 0RF Stand Alone Forms: Work/School Release Print Language: Icelandic
[2025-02-02 22:44] VITALS: BP 153/90; PULSE 89; RESP 18; TEMP 36.8; O2SAT 98
[2025-02-02] MEDS: methocarbamoL 750 MG TABLET 1500 MG PO (23:25)
[2025-02-02] MEDS: Ketorolac Tromethamine 15 MG/ML VIAL IM (23:25)
[2025-02-03 00:06] VITALS: BP 153/90; PULSE 89; RESP 18; TEMP 36.8; O2SAT 98
== END 2025-02-03 00:07 | disposition home or self-care (01) ==
PROVIDERS: Emergency Provider Emergency Medicine; PCP Nurse Practitioner Family
DX: S46.912A Strain of unspecified muscle, fascia and tendon at shoulder and upper arm level, left arm, initial encounter (principal); X50.0XXA Overexertion from strenuous movement or load, initial encounter; Y93.89 Activity, other specified; Y92.511 Restaurant or cafe as the place of occurrence of the external cause; Y99.0 Civilian activity done for income or pay
CPT/HCPCS: 73030; 73200; 96372; 99284; J1885

== ENCOUNTER → 2025-02-02 20:19 | Outpatient (BNV) | payer OTHER, SELFPAY | PROVIDERS: PCP Nurse Practitioner Family; Visit Provider Radiology Diagnostic Radiology | DX: S46.012A Strain of muscle(s) and tendon(s) of the rotator cuff of left shoulder, initial encounter (principal) | CPT/HCPCS: 73200 ==